=== PATIENT | male | born 1965 | race American Indian/Alaskan Native ===

== ENCOUNTER 2020-01-21 10:57 | Day surgery (SDC) | payer OTHER ==
[2020-01-21 12:05] VITALS: BP 112/66
[2020-01-21 12:57] LABS: INR 0.99 (0.87-1.13)
--- NOTE | 2020-01-21 14:28 | Short Stay Summary ---
Short Stay Documentation Date of service: 01/21/20 Narrative H&P: dysarthria, dysphagia - Allergies and Medications Current Medications: Allergies No Known Allergies Allergy (Unverified 01/21/20 11:08) Home Medications Medication Instructions Recorded Confirmed Last Taken Type Ibuprofen [Ibu-200] 200 mg PO Q8H 01/21/20 01/21/20 01/20/20 History - Physical exam General appearance: no acute distress Neurological: Normal gait, Strength at 5/5 X4 ext, Normal tone, Sensation intact, Other (difficulty speaking) - Brief post op/procedure progress note Date of procedure: 01/21/20 Pre-op diagnosis: dysarthria Post-op diagnosis: same Procedure: flouro guided lumbar puncture Anesthesia: local Findings: mildly elevated CSF pressure - 190 mmH2O Surgeon: JENNIFER PEACE Estimated blood loss: none Pathology: list (4 CSF tubes (2cc each)) Condition: stable - Hospital course Hospital course: uneventful - Disposition Condition at discharge: Good Disposition: DC-01 TO HOME OR SELFCARE Short Stay Discharge Plan Follow up with: PRIMARY CARE, [Primary Care Provider] - 7 Days
[2020-01-21 15:09] LABS: Glucose,CSF 62 mg/dL
--- NOTE | 2020-01-21 15:59 | Fluoroscopy Report ---
LUMBAR PUNCTURE INDICATION : This order is of the trigeminal nerves, dysarthria PROCEDURE: The risks (including but not limited to bleeding, infection, and spinal headache) and bryson efits were explained to the patient and informed consent was obtained. A time out procedure was perf ormed. The procedure site was prepped and draped in the usual sterile fashion and lidocaine was used for local anesthesia. Under fluoroscopic guidance, a 22-gauge spinal needle was advanced into the L3-4 interlaminar space. The opening pressure was 190 mm H2O which was calculated by adding the length of the needle (9 cm) to the height of the CSF column. 4 separate collection tubes were used to obtain 2 cc each of CSF. Samp les were sent to the lab per the ordering physician specifications for further evaluation. The patient tolerated the procedure well with no complications. IMPRESSION: Successful lumbar puncture as outlined above. Opening pressure was 190 mm H20. Fluoroscopic time: 1 minute Number of fluoroscopic images: 1 Signer Name: De Kamara Jr, MD Signed: 01/21/2020 3:55 PM Workstation Name: [id number]
[2020-01-21 17:13] LABS: Appearance,CSF Clear; Basophils CSF 0 %; Red Blood Cell,CSF 0 /mm3 (0-0); Total Cells Counted 0 /mm3; White Blood Cell,CSF 0 /mm3 (1-10)
== END 2020-01-21 15:32 | disposition home or self-care (01) ==
LOC: FLUORO 10:57 → CATHLABREC 10:57 → EDSTATUS 12:00 → CATHLABREC 15:32
PROVIDERS: ATTEND Psychiatry & Neurology Neurology
DX: G50.8 Other disorders of trigeminal nerve (principal); R47.1 Dysarthria and anarthria; G62.9 Polyneuropathy, unspecified; J45.909 Unspecified asthma, uncomplicated; M50.30 Other cervical disc degeneration, unspecified cervical region; K11.20 Sialoadenitis, unspecified; M19.90 Unspecified osteoarthritis, unspecified site; Z98.890 Other specified postprocedural states; Z79.899 Other long term (current) drug therapy; Z86.2 Personal history of diseases of the blood and blood-forming organs and certain disorders involving the immune mechanism
CPT/HCPCS: 36415; 62270; 77003; 82947; 83916; 84160; 85049; 85610; 86403; 86592; 87102; 87116; 88112; 88312; 89051

== ENCOUNTER 2020-01-25 12:25 | Emergency (ER) | payer OTHER ==
[2020-01-25 12:34] VITALS: BP 132/96
[2020-01-25] MEDS ORDERED: CYCLOBENZAPRINE 10 MG TAB PO ONE (13:44)
[2020-01-25] MEDS ORDERED: KETOROLAC 60 MG/2 ML INJ IM ONE (13:44)
--- NOTE | 2020-01-25 14:03 | Emergency Department Report ---
ED General Adult HPI - General Chief complaint: Back Pain/Injury Stated complaint: SEVERE BACK/NECK PAIN Time Seen by Provider: 01/25/20 12:59 Source: patient Mode of arrival: Ambulatory Limitations: No Limitations - History of Present Illness Initial comments: Patient is a 55-year-old male presents emergency room with complaints of neck pain that began 4 days ago. Patient states that he is currently seeing an orthopedic doctor for lower back pain. He states that he went to his orthopedic doctor yesterday and was given a shot and a Medrol Dosepak. Patient states that he is also seeing an ENT doctor and a neurologist, he states that he had a CT of his neck and a brain MRI and lab work performed which he reports was normal. He states that 4 days ago he had an LP performed by his doctor which he reports was normal. He states after he had the LP performed he began having the neck pain. He states he is currently taking OxyContin and ibuprofen. He denies any other medical history. No allergies medications. He denies any headache, vision changes, numbness, weakness, bowel or bladder incontinence, fever, nausea, vomiting, diarrhea. he has had difficulty with his speech for 3 months which he is currently seeing multiple specialist for. Severity scale (0 -10): 7 - Related Data Home Medications Medication Instructions Recorded Confirmed Last Taken Ibuprofen [Ibu-200] 200 mg PO Q8H 01/21/20 01/21/20 01/20/20 Previous Rx's Medication Instructions Recorded Last Taken Type Acetaminophen [Tylenol] 650 mg PO Q8HR PRN #20 capsule 01/25/20 Unknown Rx Amoxicillin/Potassium Clav 1 each PO BID 10 Days #20 tablet 01/25/20 Unknown Rx [Augmentin 875-125 Tablet] Cyclobenzaprine [Flexeril] 10 mg PO BID PRN #14 tablet 01/25/20 Unknown Rx Menthol/Camphor [[facility] 1 applicatio TP BID #8 oint...g. 01/25/20 Unknown Rx Ointment] Allergies Allergy/AdvReac Type Severity Reaction Status Date / Time No Known Allergies Allergy Unverified 01/21/20 11:08 ED Review of Systems ROS: Stated complaint: SEVERE BACK/NECK PAIN Other details as noted in HPI Comment: All other systems reviewed and negative ED Past Medical Hx - Past Medical History Previous Medical History?: Yes Hx Arthritis: Yes Hx Asthma: Yes - Social History Smoking Status: Never Smoker - Medications Home Medications: Home Medications Medication Instructions Recorded Confirmed Last Taken Type Ibuprofen [Ibu-200] 200 mg PO Q8H 01/21/20 01/21/20 01/20/20 History Acetaminophen [Tylenol] 650 mg PO Q8HR PRN #20 capsule 01/25/20 Unknown Rx Amoxicillin/Potassium Clav 1 each PO BID 10 Days #20 tablet 01/25/20 Unknown Rx [Augmentin 875-125 Tablet] Cyclobenzaprine [Flexeril] 10 mg PO BID PRN #14 tablet 01/25/20 Unknown Rx Menthol/Camphor [[facility] 1 applicatio TP BID #8 oint...g. 01/25/20 Unknown Rx Ointment] ED Physical Exam - General Limitations: No Limitations General appearance: alert, in no apparent distress - Head Head exam: Present: atraumatic, normocephalic - Eye Eye exam: Present: normal appearance - ENT ENT exam: Present: mucous membranes moist - Neck Neck exam: Present: normal inspection, tenderness (mild bilateral paraspinal muscular ttp, no midline C-spine ttp, no step offs, no deformities), full ROM - Respiratory Respiratory exam: Present: normal lung sounds bilaterally. Absent: respiratory distress, wheezes, rales, rhonchi, stridor, chest wall tenderness, accessory muscle use, decreased breath sounds, prolonged expiratory - Cardiovascular Cardiovascular Exam: Present: regular rate, normal rhythm, normal heart sounds. Absent: systolic murmur, diastolic murmur, rubs, gallop - Back Exam Back exam: Present: normal inspection, full ROM, other (LP site is clean, dry, intact, no signs of infection). Absent: paraspinal tenderness, vertebral tenderness - Neurological Exam Neurological exam: Present: alert, oriented X3, normal gait. Absent: motor sensory deficit - Psychiatric Psychiatric exam: Present: normal affect, normal mood - Skin Skin exam: Present: warm, dry, intact ED Course Vital Signs 01/25/20 12:29 Temperature 98.0 F Pulse Rate 92 H Respiratory 18 Rate Blood Pressure 132/96 O2 Sat by Pulse 98 Oximetry ED Medical Decision Making - Radiology Data Radiology results: report reviewed Ordering Physician: BESSIE MCCANN Date of Service: 01/25/20 Procedure(s): CT cervical spine wo con Accession Number(s): [id number] cc: BESSIE MCCANN . CT cervical spine wo con INDICATION / CLINICAL INFORMATION: 55 years Male; neck pain, recent LP. TECHNIQUE: Axial CT images of the cervical spine were obtained. Sagittal and coronal reformatted images were produced. All CT scans at this location are performed using CT dose reduction for ALARA by means of automated exposure control. COMPARISON: None available. FINDINGS: POST-SURGICAL CHANGES: None. ALIGNMENT: There is mild reversal of the cervical lordosis along with slight curvature the cervical spine, convex toward the left. However, there is no significant spondylolisthesis. Vertebrae: There is disc space narrowing at C5-6 with moderate degenerative endplate changes. The motion and beam hardening artifact degrade the image quality. However, there is no clear CT evidence of acute fracture involving the INTRAVERTEBRAL DISCS: The central disc bulge at C3-4 effaces the ventral subarachnoid space. There is moderate left neural foraminal narrowing. There is a slight disc bulge at C4-5 without significant central stenosis. There is mild right neural foraminal narrowing. The broad-based disc bulge and spondylosis at C5-C6 appears to efface the ventral subarachnoid space. There is moderate neural foraminal narrowing bilaterally. There is mild right foraminal narrowing at C6-7 and moderate foraminal narrowing on the right at C7-T1. PARASPINAL SOFT TISSUES: No definitive prevertebral soft tissue fluid collections are identified. There is relative heterogeneous appearance of the visualized submandibular gland with cystic changes at, most prominent on the left with component measuring approximately 1.8 cm transverse; correlation would be needed at. There are also adjacent to lymph nodes within the jugulodigastric regions. ADDITIONAL FINDINGS: None. IMPRESSION: 1. There is no CT evidence of acute fracture involving the cervical spine. 2. There are multilevel degenerative changes as detailed above. 3. There is notable heterogeneous appearance of the submandibular glands with adjacent adenopathy; correlation would be a needed. If clinical questions remain neck, follow-up dedicated postcontrast imaging of the neck could be performed to further characterize the findings. Signer Name: Shashank De Paz MD Signed: 01/25/2020 3:26 PM Workstation Name: [id number] Transcribed By: MR Dictated By: Shashank De Paz MD Electronically Authenticated By: Shashank De Paz MD Signed Date/Time: 01/25/201525 DD/ 15 TD/TT: - Medical Decision Making Patient is a 55-year-old male presents emergency room with complaints of neck pain that began 4 days ago. Patient states that he is currently seeing an orthopedic doctor for lower back pain. He states that he went to his orthopedic doctor yesterday and was given a shot and a Medrol Dosepak. Patient states that he is also seeing an ENT doctor and a neurologist, he states that he had a CT of his neck and a brain MRI and lab work performed which he reports was normal. He states that 4 days ago he had an LP performed by his doctor which he reports was normal. He states after he had the LP performed he began having the neck pain. He states he is currently taking OxyContin and ibuprofen. He denies any other medical history. No allergies medications. He denies any headache, vision changes, numbness, weakness, bowel or bladder incontinence, fever, nausea, vomiting, diarrhea. he has had difficulty with his speech for 3 months which he is currently seeing multiple specialist for. VSS. on exam: mild bilateral paraspinal muscular ttp, no midline C-spine ttp, no step offs, no deformities, no focal neuro deficits. CT cervical spine: 1. There is no CT evidence of acute fracture involving the cervical spine. 2. There are multilevel degenerative changes as detailed above. 3. There is notable heterogeneous appearance of the submandibular glands with adjacent adenopathy; correlation would be a needed. If clinical questions remain neck, follow-up dedicated postcontrast imaging of the neck could be performed to further characterize the findings. reexamination after CT: no significant submandibular swelling, no tongue elevation, no ttp or edema underneath the tongue, small anterior cervical LAD. pt will be treated for sialadenitis. discussed all results with pt and answered questions, pt given his CT report. pt given prescription for Tylenol, flexeril, tiger balm ointment and Augmentin. advised pt Please take medication as prescribed. Do not drive or operate heavy machinery while taking muscle relaxer due to potential for drowsiness. Please suck on sour candies or lemon flavored lozenges. Follow-up with your primary care doctor. Follow-up with orthopedic doctor. Follow-up with your ENT doctor. Return to emergency room for any new or worsening symptoms. - Differential Diagnosis strain, sprain, fx, dislocation, DDD,bulging disc,spondylosis,radiculopathy Critical care attestation.: If time is entered above; I have spent that time in minutes in the direct care of this critically ill patient, excluding procedure time. ED Disposition Clinical Impression: Neck pain, Sialoadenitis, Degenerative disc disease, cervical Disposition: - TO HOME OR SELFCARE Is pt being admited?: No Does the pt Need Aspirin: No Condition: Stable Instructions: Muscle Strain (ED), Sialoadenitis (ED), Degenerative Disc Disease (ED) Additional Instructions: Please take medication as prescribed. Do not drive or operate heavy machinery while taking muscle relaxer due to potential for drowsiness. Please suck on sour candies or lemon flavored lozenges. Follow-up with your primary care doctor. Follow-up with orthopedic doctor. Follow-up with your ENT doctor. Return to emergency room for any new or worsening symptoms. Prescriptions: Amoxicillin/Potassium Clav [Augmentin 875-125 Tablet] 1 each PO BID 10 Days #20 tablet Cyclobenzaprine [Flexeril] 10 mg PO BID PRN #14 tablet PRN Reason: pain Menthol/Camphor [[facility] Ointment] 1 applicatio TP BID #8 oint...g. Acetaminophen [Tylenol] 650 mg PO Q8HR PRN #20 capsule PRN Reason: pain Referrals: PRIMARY CARE,MD [Primary Care Provider] - 2-3 Days your, orthopedic [Other] - 2-3 Days your, ENT doctor [Other] - 2-3 Days Time of Disposition: 15:45 Print Language: SWEDISH
--- NOTE | 2020-01-25 15:30 | Cat Scan Report ---
. CT cervical spine wo con INDICATION / CLINICAL INFORMATION: 55 years Male; neck pain, recent LP. TECHNIQUE: Axial CT images of the cervical spine were obtained. Sagittal and coronal reformatted images were pr oduced. All CT scans at this location are performed using CT dose reduction for ALARA by means of aut omated exposure control. COMPARISON: None available. FINDINGS: POST-SURGICAL CHANGES: None. ALIGNMENT: There is mild reversal of the cervical lordosis along with slight curvature the cervical s pine, convex toward the left. However, there is no significant spondylolisthesis. Vertebrae: There is disc space narrowing at C5-6 with moderate degenerative endplate changes. The mot ion and beam hardening artifact degrade the image quality. However, there is no clear CT evidence of acute fracture involving the INTRAVERTEBRAL DISCS: The central disc bulge at C3-4 effaces the ventral subarachnoid space. There is moderate left neural foraminal narrowing. There is a slight disc bulge at C4-5 without significant c entral stenosis. There is mild right neural foraminal narrowing. The broad-based disc bulge and spondylosis at C5-C6 appears to efface the ventral subarachnoid space. There is moderate neural foraminal narrowing bilaterally. There is mild right foraminal narrowing at C6-7 and moderate foraminal narrowing on the right at C7-T1. PARASPINAL SOFT TISSUES: No definitive prevertebral soft tissue fluid collections are identified. The re is relative heterogeneous appearance of the visualized submandibular gland with cystic changes at, most prominent on the left with component measuring approximately 1.8 cm transverse; correlation wou ld be needed at. There are also adjacent to lymph nodes within the jugulodigastric regions. ADDITIONAL FINDINGS: None. IMPRESSION: 1. There is no CT evidence of acute fracture involving the cervical spine. 2. There are multilevel degenerative changes as detailed above. 3. There is notable heterogeneous appearance of the submandibular glands with adjacent adenopathy; co rrelation would be a needed. If clinical questions remain neck, follow-up dedicated postcontrast imag ing of the neck could be performed to further characterize the findings. Signer Name: Shashank De Paz MD Signed: 01/25/2020 3:26 PM Workstation Name: [id number]
== END 2020-01-25 16:12 | disposition home or self-care (01) ==
LOC: ED 12:25
DX: M50.33 Other cervical disc degeneration, cervicothoracic region (principal); K11.20 Sialoadenitis, unspecified; M19.91 Primary osteoarthritis, unspecified site; J45.909 Unspecified asthma, uncomplicated; Z79.1 Long term (current) use of non-steroidal anti-inflammatories (NSAID); Z79.899 Other long term (current) drug therapy
CPT/HCPCS: 72125; 96372; 99283; J1885